=== PATIENT | male | born 1980 | race Caucasian/White ===

== ENCOUNTER 2018-09-12 18:45 | Emergency (ER) | payer OTHER ==
[2018-09-12] MEDS ORDERED: AMOXICILLIN/CLAVULANATE POT 875/125 MG TAB PO ONE (20:55)
--- NOTE | 2018-09-12 20:55 | EDPHY ---
H & P Time Seen by Provider: 09/12/18 19:13 HPI/ROS: Chief complaint: Dog bite resulting in laceration to the left side of the nose History of present illness: This is a 37-year-old male who presents to the emergency department after being bitten by a dog resulting in a laceration to the left side of his nose. He was playing with his friends dog who was excited and nipped him. The dog is reported is healthy and up-to-date on immunizations. Patient reports mild pain and bleeding at the site of injury. He has been controlled with a dressing. He states his tetanus is up-to-date. He denies other trauma. Smoking Status: Never smoked Physical Exam: General: Alert, nontoxic. Skin: 1 cm laceration inferior to the left nare that does interrupt the rim of the nostril. It does approximate well. ENT: No epistaxis. Oropharynx and mouth unremarkable. Neurologic: Alert and oriented x4. Cranial nerves 2-12 grossly intact. Strength and sensation intact and symmetrical. Constitutional: Initial Vital Signs Temperature (C) 36.5 C 09/12/18 18:48 Heart Rate 79 09/12/18 18:48 Respiratory Rate 18 09/12/18 18:48 Blood Pressure 121/88 H 09/12/18 18:48 O2 Sat (%) 97 09/12/18 18:48 O2 Delivery Mode Room Air Allergies/Adverse Reactions: No Known Allergies Allergy (Unverified 09/12/18 18:47) Home Medications: Medication Instructions Recorded Amoxicillin/Clavulanate Pot 875 mg PO BID #14 tab 09/12/18 [Augmentin 875 MG TAB (*)] MDM/Departure - MDM Procedures: Procedure: Laceration repair. Verbal consent was obtained from the patient. The 1 cm laceration inferior to the left nostril was anesthetized in the usual fashion. The wound was irrigated , draped and explored to its base with a gloved finger. There were no deep structures involved. No foreign bodies identified. The wound was repaired with 6 0 Prolene, 4 simple interrupted sutures. The wound repair was simple. The procedure was performed by myself. Medications Given: Discontinued Medications Amoxicillin/Clavulanate Potassium (Augmentin 875mg) 875 mg PO EDNOW ONE PRN Reason: Protocol Stop: 09/12/18 20:56 Last Admin: 09/12/18 21:03 Dose: 875 mg ED Course/Re-evaluation: Patient seen under the supervision of my secondary supervising physician Dr. Jerry Calderon. Patient presents with a laceration under his left nostril that interrupts the rim of the nostril caused by a dog bite. He asked for me to consult with Plastic surgery. We did not have a plastic surgeon on-call this evening but I was able to get a hold of Dr. Candelaria. Dr. Candelaria was comfortable with me primarily closing the wound in the emergency room and having him follow up in the clinic in 5 days. I discussed this with the patient and he voiced that he was comfortable with this plan. The area was prepped, the wound was thoroughly irrigated, the wound was repaired, patient was started on Augmentin. Patient was discharged home. Home care was discussed including wound care. He will continue Augmentin. He is to follow up with Plastic surgery for further care. Return precautions are given. - Depart Disposition: [facility] Clinical Impression: Dog bite of nose Qualifiers: Encounter type: initial encounter Qualified Code(s): S01.25XA - Open bite of nose, initial encounter; W54.0XXA - Bitten by dog, initial encounter; W54.0XXA - Bitten by dog, initial encounter Condition: Good Instructions: Animal Bite (ED), Acute Wounds (ED) Additional Instructions: Follow-up with Plastic surgery this for continued evaluation and care Stitches to be removed by the plastic surgeon Keep wound clean with soap and water at least 3 times daily, after cleaning apply antibacterial ointment like Neosporin Take oral antibiotics as prescribed If symptoms worsen or new symptoms develop return to the emergency room for recheck Prescriptions: Amoxicillin/Clavulanate Pot [Augmentin 875 MG TAB (*)] 875 mg PO BID #14 tab Referrals: NONE *PRIMARY CARE P,. [Primary Care Provider] - As per Instructions Dane Candelaria JR, MD [Medical Doctor] - As per Instructions
[2018-09-12 21:17] VITALS: BP 133/77
== END 2018-09-12 21:17 | disposition short-term general hospital (02) ==
PROC: 0HQ1XZZ Repair Face Skin, External Approach (ICD-10-PCS; principal; 2018-09-12)
DX: S01.25XA Open bite of nose, initial encounter (principal); W54.0XXA Bitten by dog, initial encounter; Y93.K9 Activity, other involving animal care; Y92.9 Unspecified place or not applicable